=== PATIENT | male | born 1985 | race Caucasian/White ===

== ENCOUNTER 2021-10-19 01:23 | Emergency (ER) | payer OTHER ==
[~2021-10-19] VITALS: Ht 185.4 cm; Wt 74.8 kg
[2021-10-19] MEDS ORDERED: ACID REDUCER20 M1 (01:41)
[2021-10-19] MEDS ORDERED: AZITHROMYCIN500 MG PO (06:50)
== END 2021-10-19 07:00 | disposition home or self-care (01) ==
LOC: ER 01:23 → EDBD 01:23 → ER 02:19
DX: A49.3 Mycoplasma infection, unspecified site (principal); R07.89 Other chest pain; R06.02 Shortness of breath